=== PATIENT | male | born 1990 | race African-American/Black ===

== ENCOUNTER 2022-01-21 12:05 | Emergency (ER) | payer SELFPAY ==
[~2022-01-21] VITALS: Ht 188 cm; Wt 99.8 kg
--- NOTE | 2022-01-21 12:31 | NUR ---
URINE SAMPLE COLLECTED AND SENT TO LAB
[2022-01-21 13:14] LABS: BILIRUBIN,URINE NEGATIVE (NEGATIVE); COLOR,URINE YELLOW (YELLOW); LEUKOCYTE ESTERASE ,URINE NEGATIVE (NEGATIVE); NITRITE, URINE NEGATIVE (NEGATIVE); PH,URINE 8.5 (5.0-8.0); PROTEIN,URINE NEGATIVE (NEGATIVE); UGLUCOSE NEGATIVE (NEGATIVE); UROBILINOGEN,URINE 0.2 EU/dL (0.2)
[2022-01-21] MEDS ORDERED: DOXY100C2 PO (14:21)
[2022-01-21] MEDS ORDERED: CEFTRIAXONE 500 MG VIAL IM ONE (14:30)
[2022-01-21] MEDS ORDERED: CEFTRIAXONE 1 G VIAL ONE (14:33)
[2022-01-21] MEDS ORDERED: CEFTRIAXONE 500 MG VIAL ONE (14:35)
[2022-01-21 14:45] VITALS: BP 135/70
== END 2022-01-21 14:46 | disposition home or self-care (01) ==
LOC: ER 12:11
DX: N45.1 Epididymitis (principal); N50.811 Right testicular pain; F12.90 Cannabis use, unspecified, uncomplicated; Z60.2 Problems related to living alone
CPT/HCPCS: 76870; 81003; 87491; 87591; 96372; 99284; J0696 ×2